=== PATIENT | male | born 1995 | race Caucasian/White ===

== ENCOUNTER 2023-02-05 14:52 | Emergency (ER) | payer SELFPAY ==
[~2023-02-05] VITALS: Ht 162.6 cm; Wt 113.4 kg
[2023-02-05 15:35] VITALS: BP_SYST 157; PULSE 85; RESP 22; TEMP 98.3; O2SAT 98
[2023-02-05] MEDS ORDERED: DIPHTH,PERTUSS(ACELL),TET VAC 0.5 ML VIAL (Tdap) I.M. ONE (15:45)
[2023-02-05 15:59] VITALS: BP_SYST 157; PULSE 85; RESP 22; TEMP 98.3; O2SAT 98
== END 2023-02-05 16:32 | disposition home or self-care (01) ==
LOC: SED 14:52
DX: S61.303A Unspecified open wound of left middle finger with damage to nail, initial encounter (principal); Z79.899 Other long term (current) drug therapy; W26.0XXA Contact with knife, initial encounter; Y93.89 Activity, other specified; Y92.89 Other specified places as the place of occurrence of the external cause; Y99.8 Other external cause status
CPT/HCPCS: 90715; 99283

== ENCOUNTER 2023-06-23 21:29 | Emergency (ER) | payer SELFPAY ==
[~2023-06-23] VITALS: Ht 172.7 cm; Wt 154.2 kg
[2023-06-23 22:12] VITALS: BP_SYST 123; PULSE 117; RESP 16; TEMP 100; O2SAT 95
[2023-06-24 01:47] LABS: INFLUENZA TYPE A Negative (NEGATIVE); INFLUENZA TYPE B NEGATIVE (NEGATIVE)
[2023-06-24] MEDS ORDERED: IBUP-1969 PO (02:05)
[2023-06-24 02:08] VITALS: BP_SYST 128; PULSE 98; RESP 18; TEMP 99.1; O2SAT 96
== END 2023-06-24 02:08 | disposition home or self-care (01) ==
LOC: SED 21:29
DX: J06.9 Acute upper respiratory infection, unspecified (principal)
CPT/HCPCS: 36415; 99283